=== PATIENT | female | born 1990 | race Hispanic/Latino ===

== ENCOUNTER 2017-10-24 18:29 | Inpatient (IN) | payer MEDICAID ==
[~2017-10-24] VITALS: Ht 165.1 cm; Wt 121.1 kg
[2017-10-24] MEDS ORDERED: OXYTOCIN-LR 20 UNITS/1000 ML 1,000 ML IV SCH (19:30)
[2017-10-24] MEDS ORDERED: PREN1TAB89 PO (19:33)
[2017-10-24 19:36] LABS: APPEARANCE,URINE Clear (CLEAR); BILIRUBIN,URINE Negative (NEGATIVE); COLOR,URINE Dark Yellow (YELLOW); GLUCOSE, URINE (UA) Negative (NEGATIVE); KETONES,URINE Trace mg/dL (NEGATIVE); LEUKOCYTE ESTERASE ,URINE Trace (NEGATIVE); NITRATE,URINE Negative (NEGATIVE); OCCULT BLOOD,URINE Negative (NEGATIVE); PROTEIN,URINE POS 1+ (NEGATIVE)
[2017-10-24 19:44] LABS: BACTERIA,URINE Few /HPF (None Seen); CALCIUM OXALATE CRYSTALS,UR Few /LPF (None Seen); MUCUS,URINE Few LPF (None Seen); RBC,URINE None Seen /HPF (0-1); WBC,URINE 0-1 /HPF (0-1)
[2017-10-24 20:00] VITALS: BP 118/68
[2017-10-24] MEDS: LACTATED RINGERS 1000ML 1,000 ML IV PRN ×2 (20:44→22:17)
[2017-10-24 20:55] LABS: HEMATOCRIT 32.2 % (36-48); MEAN CORPUSCULAR HEMOGLOBIN 27.9 pg (27.0-33.0); MEAN CORPUSCULAR HGB CONC 34.3 g/dL (32.0-36.0); MEAN CORPUSCULAR VOLUME 81.3 fL (79-99); PLATELET COUNT (AUTO) 193 K/uL (130-400); RED BLOOD CELL COUNT(AUTO) 3.96 MIL/uL (4.00-5.50); RED CELL DISTRIBUTION WIDTH 14.7 % (11.0-15.5); WHITE BLOOD COUNT (AUTO) 11.7 K/uL (4.8-10.8)
[2017-10-24] MEDS ORDERED: PROMETHAZINE HCL 25 MG/ML 1ML AMPULE IM SCH (22:00)
[2017-10-24] MEDS ORDERED: MEPERIDINE-PF 50 MG/ML SYG IVP ONE (22:00)
[2017-10-25] VITALS (9 sets, daily range): BP systolic 106–118; BP diastolic 48–79
[2017-10-25] MEDS ORDERED: LACTATED RINGERS 1000ML 1,000 ML IV ONE (04:36)
[2017-10-25] MEDS ORDERED: OXYTOCIN 10 USP UNITS/ML ONE ×2 (04:37→12:24)
[2017-10-25] MEDS ORDERED: OXYTOCIN 10 USP UNITS/ML 20 UNIT in LACTATED RINGERS 1000ML 1,000 ML IV SCH (05:00)
[2017-10-25] MEDS: LACTATED RINGERS 1000ML 1,000 ML IV PRN (05:47)
[2017-10-25] MEDS ORDERED: PROMETHAZINE HCL 25 MG/ML 1ML AMPULE IM SCH (08:15)
[2017-10-25] MEDS ORDERED: MEPERIDINE-PF 50 MG/ML SYG IVP SCH (08:15)
[2017-10-25] MEDS ORDERED: MEASLES/MUMPS/RUBELLA VACCINE, LIVE 0.5 ML/VIAL SQ PRN (11:30)
[2017-10-25] MEDS ORDERED: WITCH HAZEL 1 PAD TP PRN (11:30)
[2017-10-25] MEDS ORDERED: LANOLIN 30GM OINTMENT TP PRN (11:30)
[2017-10-25] MEDS ORDERED: ACETAMINOPHEN 325 MG TAB PO PRN (11:30)
[2017-10-25] MEDS ORDERED: BENZOCAINE/LANOLIN/ALOE VERA 60 ML AEROSOL TP PRN (11:30)
[2017-10-25] MEDS ORDERED: DIPH,PERTUSS(ACELL),TET VAC/PF 0.5 ML VIAL IM PRN (11:30)
[2017-10-25] MEDS: IBUPROFEN 800 MG TAB PO PRN ×2 (11:32→22:10)
[2017-10-25] MEDS ORDERED: ACETAMINOPHEN-CODEINE 300/30MG TAB PO PRN (16:00)
[2017-10-25] MEDS: DOCUSATE SODIUM 100 MG CAP PO SCH (22:09)
[2017-10-26 03:38] VITALS: BP 116/71
[2017-10-26 05:32] LABS: HEMATOCRIT 26.9 % (36-48); MEAN CORPUSCULAR HEMOGLOBIN 27.8 pg (27.0-33.0); MEAN CORPUSCULAR HGB CONC 33.8 g/dL (32.0-36.0); MEAN CORPUSCULAR VOLUME 82.2 fL (79-99); PLATELET COUNT (AUTO) 172 K/uL (130-400); RED BLOOD CELL COUNT(AUTO) 3.28 MIL/uL (4.00-5.50); RED CELL DISTRIBUTION WIDTH 15.1 % (11.0-15.5)
[2017-10-26 07:00] VITALS: BP 90/46
[2017-10-26 08:19] LABS: HEPATITIS Bs ANTIGEN SCREEN P Negative (Negative)
[2017-10-26] MEDS: DOCUSATE SODIUM 100 MG CAP PO SCH (09:54)
[2017-10-26] MEDS: IBUPROFEN 800 MG TAB PO PRN (09:55)
[2017-10-26 11:00] VITALS: BP 107/63
== END 2017-10-26 15:30 | disposition home or self-care (01) | DRG 560 ==
LOC: EDH 18:29 → OBSVTOIN 18:40 → LDH 18:40 → WSH 10-25 10:50
PROVIDERS: ADMIT Obstetrics & Gynecology; ATTEND Obstetrics & Gynecology
PROC: 10E0XZZ Delivery of Products of Conception, External Approach (ICD-10-PCS; principal; 2017-10-25)
PROC: 10907ZC Drainage of Amniotic Fluid, Therapeutic from Products of Conception, Via Natural or Artificial Opening (ICD-10-PCS; 2017-10-25)
PROC: 3E033VJ Introduction of Other Hormone into Peripheral Vein, Percutaneous Approach (ICD-10-PCS; 2017-10-25)
PROC: 3E0234Z Introduction of Serum, Toxoid and Vaccine into Muscle, Percutaneous Approach (ICD-10-PCS; 2017-10-25)
PROC: 3E0134Z Introduction of Serum, Toxoid and Vaccine into Subcutaneous Tissue, Percutaneous Approach (ICD-10-PCS; 2017-10-25)
DX: O99.02 Anemia complicating childbirth (principal); O99.344 Other mental disorders complicating childbirth; D64.9 Anemia, unspecified; F32.9 Major depressive disorder, single episode, unspecified; Z23 Encounter for immunization; Z37.0 Single live birth; Z3A.39 39 weeks gestation of pregnancy; Z90.49 Acquired absence of other specified parts of digestive tract
CPT/HCPCS: 36415; 81001; 82120; 85027; 86592; 86850; 86900; 86901; 87340; 90707; 90715; A4351; A4606; J2175; J2550; J2590; J7120

== ENCOUNTER 2023-07-19 10:24 | Observation (INO) | payer MEDICAID ==
[~2023-07-19 10:24] MED LIST: PREN1TAB89 PO
[2023-07-19 10:59] LABS: APPEARANCE,URINE CLEAR (CLEAR); BILIRUBIN,URINE NEGATIVE (NEGATIVE); COLOR,URINE YELLOW (YELLOW); GLUCOSE, URINE (UA) NEGATIVE (NEGATIVE); KETONES,URINE NEGATIVE (NEGATIVE); LEUKOCYTE ESTERASE ,URINE 25 Leu/uL (NEGATIVE); NITRATE,URINE NEGATIVE (NEGATIVE); OCCULT BLOOD,URINE NEGATIVE (NEGATIVE); PH,URINE 6.5 (5.0-8.0); PROTEIN,URINE 10 mg/dL (NEGATIVE)
[2023-07-19 11:08] LABS: ADD UA MICROSCOPIC YES
[2023-07-19 11:10] LABS: MUCUS,URINE RARE LPF (None Seen); SQUAMOUS EPITHELIAL CELL,UR RARE /HPF (0-2); WBC,URINE 0-1 /HPF (0-1)
== END 2023-07-19 12:15 | disposition home or self-care (01) ==
LOC: LDH 10:24
PROVIDERS: ADMIT Obstetrics & Gynecology; ATTEND Obstetrics & Gynecology
DX: Z36.83 Encounter for fetal screening for congenital cardiac abnormalities (principal); Z3A.38 38 weeks gestation of pregnancy
CPT/HCPCS: 81001; 76819; G0378 ×2; G0379